=== PATIENT | female | born 1985 | race Caucasian/White ===

== ENCOUNTER → 2016-07-03 | Outpatient (CLI) | payer BC ==
[2016-07-03 10:48] LABS: CH 31.1; CHCM 34.2; Glucose 92 mg/dL (74-99); HCT 37.9 % (34.0-46.0); HDW 2.35; HGB 12.5 gm/dL (11.4-16.0); MCH 30.1 pg (25.0-35.0); MCV 91.3 fL (80.0-100.0); Mean Platelet Volume 7.2; Non-African American GFR(MDRD) >60 (>60 ml/min/1.73 sqM); RBC 4.15 m/uL (3.80-5.40); RDW 13.2 % (11.5-15.5); WBC 6.9 k/uL (3.8-10.6)
[2016-07-03 11:17] LABS: Hepatitis B Surface Ag Index 0.05
[2016-07-03 15:50] LABS: Treponemal Ab Non-Reactive (Non-Reactive)
[2016-07-04 09:39] LABS: HIV-1/HIV-2 Ab Screen NONREAC (NON REAC)
== END | disposition home or self-care (01) ==
LOC: LABWHC1 10:02
PROVIDERS: ATTEND Obstetrics & Gynecology
DX: O26.811 Pregnancy related exhaustion and fatigue, first trimester (principal); Z3A.00 Weeks of gestation of pregnancy not specified
CPT/HCPCS: 36415; 82565; 82947; 85027; 86762; 86777; 86778; 86780; 86850; 86900; 86901; 87340; 87389

== ENCOUNTER → 2016-10-02 | Outpatient (CLI) | payer BC ==
--- NOTE | 2016-10-02 07:55 | US ---
EXAMINATION TYPE: US OB anatomy transabd DATE OF EXAM: 10/02/2016 7:42 AM COMPARISON: NONE HISTORY: Large for Dates 2nd Trimester 036.62X0 Anatomy Scan TECHNIQUE: Transabdominal (TA) EXAM MEASUREMENTS: GESTATIONAL AGE / DATING Physician Established: (19 weeks/4 days) EDC: 02/22/2017 Dates by LMP: Unknown Dates by First Scan: No prior Dates by Current Scan for: (20 weeks/0 days) EDC: 02/19/2017 SURVEY IUP: Single PLACENTA: Anterior PREVIA: No previa CHRIS: 13.1 cm Normal CERVICAL LENGTH (transabdominal: norm > 3.0cm): cm CERVICAL LENGTH (transvaginal: norm> 2.5cm): 3.6 cm BIOMETRY PRESENTATION: Vertex BPD: 4.5 cm 19 weeks / 5 days HC: 17.4 cm 20 weeks / 0 days AC: 14.5 cm 19 weeks / 6 days FL: 3.3 cm 20 weeks / 3 days ESTIMATED WEIGHT IN GRAMS: 327 grams ESTIMATED WEIGHT IN LBS/OZS: 0 lbs. 12 oz. WEIGHT PERCENTAGE BASED ON ESTABLISHED DATE: 72 % HC/AC: 1.20 Normal FL/AC: 23 Normal HEART RATE: 140 bpm RHYTHM: Normal ANATOMY SEEN (within normal limits): * Lateral Vent (< 1 cm) 0.7 cm * Cisterna Magna (< 1.1 cm) 0.6 cm * Nuchal Fold (< 0.6 cm) 0.2 cm * Cerebellum (varies with age) 2.0 cm Choroid Plexus (bilateral) Midline Falx Cavus Septi Pellucidi Four Chamber Heart Outflow tracts: LVOT/RVOT Stomach Situs Nose / Lips Diaphragm Kidneys (bilateral) Bladder Cord Insert Three Vessel Cord Longitudinal Spine Transverse Spine Arms (bilateral) Legs (bilateral) Single, viable IUP/ No abnormality seen at this time IMPRESSION: Single viable intrauterine .
== END | disposition home or self-care (01) ==
LOC: RADUSWWP 07:07
PROVIDERS: ATTEND Obstetrics & Gynecology
DX: O36.62X0 Maternal care for excessive fetal growth, second trimester, not applicable or unspecified (principal); Z3A.20 20 weeks gestation of pregnancy
CPT/HCPCS: 76811

== ENCOUNTER → 2016-11-25 | Outpatient (CLI) | payer BC ==
[2016-11-25 11:03] LABS: CH 32.1; CHCM 34.5; HDW 2.83; HGB 11.8 gm/dL (11.4-16.0); MCH 32.4 pg (25.0-35.0); MCHC 34.6 g/dL (31.0-37.0); MCV 93.6 fL (80.0-100.0); Mean Platelet Volume 6.8; RBC 3.63 m/uL (3.80-5.40); RDW 13.4 % (11.5-15.5); WBC 7.7 k/uL (3.8-10.6)
== END | disposition home or self-care (01) ==
LOC: LABWHC1 09:41
PROVIDERS: ATTEND Obstetrics & Gynecology
DX: Z34.82 Encounter for supervision of other normal pregnancy, second trimester (principal); Z3A.00 Weeks of gestation of pregnancy not specified
CPT/HCPCS: 36415; 82950; 85027

== ENCOUNTER → 2016-11-28 | Outpatient (CLI) | payer BC ==
[2016-11-28 11:33] LABS: Glucose 3 Hour, Gest 74 mg/dL
== END ==
LOC: LABWHC1 07:17
PROVIDERS: ATTEND Obstetrics & Gynecology
DX: O99.810 Abnormal glucose complicating pregnancy (principal); Z3A.00 Weeks of gestation of pregnancy not specified
CPT/HCPCS: 36415; 82951; 82952

== ENCOUNTER 2017-02-16 10:14 | Inpatient (IN) | payer BC ==
--- NOTE | 2017-02-13 06:49 | P.HPOB ---
History of Present Illness H&P Date: 02/13/17 Chief Complaint: Repeat section. This patient is a pleasant 31-year-old 4 para 2 female estimated date of confinement 02/22/2017 estimated gestational age 39-0/7 weeks gestation who is admitted to labor and delivery for elective repeat section. Patient 's care has been uncomplicated. She has had 2 previous sections desires repeat. Review of Systems Constitutional: Denies chills, Denies fever Cardiovascular: Denies chest pain, Denies shortness of breath Respiratory: Denies cough Gastrointestinal: Reports heartburn Genitourinary: Reports Menstruation: Reports amenorrhea Musculoskeletal: Denies myalgias Past Medical History Past Medical History: No Reported History History of Any Multi-Drug Resistant Organisms: None Reported Past Surgical History: Section Past Anesthesia/Blood Transfusion Reactions: No Reported Reaction Past Psychological History: No Psychological Hx Reported Smoking Status: Never smoker Past Alcohol Use History: None Reported Past Drug Use History: None Reported Medications and Allergies Home Medications Medication Instructions Recorded Confirmed Type Pnv,Calcium 72/Iron/Folic Acid 1 tab PO DAILY 02/13/17 02/13/17 History [ Plus Tablet] Allergies Allergy/AdvReac Type Severity Reaction Status Date / Time No Known Allergies Allergy Verified 02/13/17 06:47 Exam - OBG Physical Exam Abdomen: bowel sounds normal, no diffuse tenderness, no bruit present, no guarding noted, no hepatomegaly, no splenomegaly, no mass Vulva: both: normal Vagina: normal moisture, no discharge Cervix: no lesion (Cervix in the office was closed.), no discharge Uterus: enlarged (Fundal height is 39 cm) Results blood work shows she is O positive, rubella nonimmune, hepatitis B negative, RPR is nonreactive, ultrasounds have been normal, group B strep was negative, Glucola was abnormal with a normal three-hour gtt. Assessment and Plan (1) Third trimester Narrative/Plan: This is a pleasant 31-year-old 4 para 2 female 39-0/7 weeks gestation who is admitted to labor and delivery for elective repeat section. Plan is repeat low transverse section. Patient and I have discussed the surgery and risks including risks of infection, bleeding, possible injury to bowel, bladder, vessels, and/or other organs. She also understands risk of DVT and pulmonary embolism. All the patient's questions have been answered and a written consent is obtained. Status: Acute (2) Previous delivery affecting Status: Acute
[2017-02-13 13:14] VITALS: BMI 30.2
[2017-02-16] MEDS ORDERED: CITRIC ACID-SODIUM CITRATE 15 ML CUP PO ONE (10:23)
[2017-02-16] MEDS ORDERED: LACTATED RINGERS 1,000 ML IV SCH (10:23)
[2017-02-16] MEDS ORDERED: LACTATED RINGERS 1,000 ML IV ONE (10:23)
[2017-02-16 10:55] LABS: Basophils % (A) 0 %; CH 32.1; CHCM 35.9; Eosinophils # (A) 0.1 k/uL (0-0.7); Eosinophils % (A) 1 %; HCT 35.6 % (34.0-46.0); HDW 3.17; HGB 12.4 gm/dL (11.4-16.0); Luc # (Auto) 0.15; Luc % (Auto) 2; Lymphocytes # (A) 1.4 k/uL (1.0-4.8); Lymphocytes % (A) 16 %; MCH 31.3 pg (25.0-35.0); MCHC 34.8 g/dL (31.0-37.0); Mean Platelet Volume 7.6; Monocytes # (A) 0.5 k/uL (0-1.0); Monocytes % (A) 6 %; Neutrophils # (A) 6.1 k/uL (1.3-7.7); Neutrophils % (A) 74 %; RBC 3.96 m/uL (3.80-5.40); RDW 13.5 % (11.5-15.5); WBC 8.2 k/uL (3.8-10.6); WBC (Perox) 8.14
[2017-02-16] MEDS ORDERED: ceFAZolin 2 GM in SODIUM CHLORIDE 0.9% 100 ML IVPB ONE (11:45)
[2017-02-16] MEDS ORDERED: OXYTOCIN 10 UNIT/ML 1 ML VIAL ONE (12:30)
[2017-02-16] MEDS ORDERED: NALBUPHINE 10 MG/ML AMPUL ONE (12:30)
[2017-02-16] MEDS ORDERED: ePHEDrine SULFATE/0.9% NACL/PF 50 MG/5 ML SYRINGE IV ONE (12:30)
[2017-02-16] MEDS ORDERED: MORPHINE SULFATE (PF) 0.3 MG/0.3 ML SYR ONE (12:30)
[2017-02-16] MEDS ORDERED: ONDANSETRON 4 MG/2 ML VIAL ONE (12:30)
[2017-02-16] MEDS ORDERED: ACETAMINOPHEN TAB 325 MG TAB PO PRN (13:10)
[2017-02-16] MEDS ORDERED: diphenhydrAMINE 50 MG/ML 1 ML VIAL IVP PRN (13:10)
[2017-02-16] MEDS ORDERED: KETOROLAC 30 MG/ML 1 ML VIAL IVP PRN (13:10)
[2017-02-16] MEDS ORDERED: SIMETHICONE 80 MG CHEWABLE PO PRN (13:10)
[2017-02-16] MEDS ORDERED: diphenhydrAMINE 25 MG CAP PO PRN (13:10)
[2017-02-16] MEDS ORDERED: ONDANSETRON 4 MG/2 ML VIAL IVP PRN (13:10)
[2017-02-16] MEDS ORDERED: MEASLES-MUMPS-RUBELLA VACC/PF 12,500 UNIT/0.5 ML VIAL SQ ONE (13:10)
[2017-02-16] MEDS ORDERED: METOCLOPRAMIDE 5 MG/ML 2 ML VIAL IVP PRN (13:10)
[2017-02-16] MEDS ORDERED: NALOXONE 0.4 MG/ML 1 ML VIAL IV PRN (13:10)
[2017-02-16] MEDS ORDERED: ZOLPIDEM 5 MG TAB PO PRN (13:10)
[2017-02-16] MEDS ORDERED: Acetaminophen-Codeine 300-30mg TAB PO PRN (13:10)
[2017-02-16] MEDS ORDERED: OXYTOCIN 20 UNITS/1000 ML NS 1,000 ML IV SCH (13:15)
[2017-02-16] MEDS ORDERED: DIPH,PERTUS(ACELL)TETVAC-LF 0.5 ML VIAL IM ONE (15:55)
[2017-02-16 17:37] LABS: Glucose,Whole Blood 100 mg/dL (75-99)
--- NOTE | 2017-02-16 17:41 | P.OP ---
Date of Procedure: 02/16/17 Preoperative Diagnosis: #1: 39 and one sevenths week intrauterine . #2: Previous section desires repeat. Postoperative Diagnosis: Same Procedure(s) Performed: Repeat low transverse section Implants: Anesthesia: spinal Surgeon: Major Thomas Operations Director #1: Heath Rea Estimated Blood Loss (ml): 800 Pathology: other (Placenta) Condition: stable Disposition: floor Indications for Procedure: Please see dictated H&P for intimate details of this patient's admission. In brief summary this is a pleasant 31-year-old 4 para 2 female 39 and one sevenths weeks gestation who is admitted to labor and delivery for elective repeat section. Patient does understand the surgery and its risks including risks of infection, bleeding, possible injury to bowel, bladder, vessels, and/or other organs. Patient understands the risk of DVT and pulmonary embolism. All the patient's questions are answered and a written consent is obtained. Operative Findings: This was a vigorous viable male infant Apgars are 9 and 9 delivery time is 1245 hours. Description of Procedure: This patient has a Angelo catheter placed to straight drain. She is subsequently taken to the operating room where she sat up and spinal anesthetic is administered without incident. With an adequate level of anesthesia she has abdominal prep and drape. Scalpels and taken the previous Pfannenstiel incision is incised. A second scalpel is taken down to the fascia and the fascia scored with a knife. Fascial incision extended bilaterally using the Riley scissors. Fascia is dissected sharply off the rectus muscles. Rectus muscles are and the peritoneum was identified and entered sharply. Peritoneal incision extended superior and inferior without difficulty. Bladder blade is then placed. Bladder peritoneum was taken sharply off the lower uterine segment. Scalpels and taken a low transverse uterine incision is then made. Using a hemostat I gently enter the uterine cavity and there is loss of clear fluid. This incision is then extended bluntly. The 's head is then guided through the incision with fundal pressure delivered. Mouth and nares are bulb suctioned. There is a nuchal cord 1 which is reduced. We then have delivery anterior and posterior shoulder and rest this 's body. This is a vigorous viable male Apgars are 9 and 9 delivery time is 1245 hrs. has spontaneous respirations and good cry and grossly appears normal. After delivery of the the umbilical cord is doubly clamped and cut and appears to be trivascular. Placenta is then spontaneously delivered intact. Uterus is then externalized and uterine incision demarcated with Marino clamps. Uterine incision is then closed using 0 Vicryl running locked fashion 2 layers. Excellent hemostasis is noted. Excess fluid is removed from the abdomen and pelvis. Uterus tubes and ovaries appear normal for term gestation. Uterus placed back into the abdomen. Parietal peritoneum was then closed using 0 Vicryl running fashion. Rectus muscles reapproximated in 0 Vicryl interrupted fashion. Fascia is then closed using 0 PDS in running fashion. Fascial incision is intact and hemostatic. Subcutaneous tissues and reapproximated using a 3-0 Vicryl. Skin is and closed using rio. All counts are correct 3. No complications. and mother are taken to the birthing suite in satisfactory condition.
[2017-02-16 18:14] VITALS: RESP 16
[2017-02-17] MEDS: SENNOSIDES-DOCUSATE SODIUM 1 EACH TAB PO SCH ×3 (03:30→20:46)
[2017-02-17] MEDS: LACTATED RINGERS 1,000 ML IV SCH (03:30)
--- NOTE | 2017-02-17 05:31 | P.PNOBGPC ---
Subjective - Subjective Patient reports: Reports appetite normal, Reports voiding normally, Reports pain well controlled, Reports ambulating normally : doing well Objective - Vital Signs Latest vital signs: Vital Signs Temp Pulse Resp BP BP Pulse Ox 02/17/17 04:00 98.4 F 74 16 96/63 02/17/17 00:00 98.1 F 79 16 107/65 02/16/17 20:00 98.0 F 84 16 100/57 02/16/17 17:30 98.2 F 74 16 121/64 100 02/16/17 16:00 98.4 F 72 18 111/59 02/16/17 15:17 98.7 F 77 16 110/58 02/16/17 14:47 97.9 F 71 16 115/68 98 02/16/17 14:17 98.6 F 65 16 106/63 02/16/17 14:02 98.7 F 69 16 102/62 02/16/17 13:47 97.8 F 74 16 106/64 97 02/16/17 13:32 97.2 F L 71 18 109/60 97 02/16/17 13:17 96.9 F L 84 18 116/57 02/16/17 10:40 96.7 F L 96 18 120/80 Intake and Output 02/16/17 02/16/17 02/17/17 14:59 22:59 06:59 Intake Total 1100 200 Output Total 1000 1100 1250 Balance 100 -900 -1250 Intake: IV 1100 Oral 200 Output: Urine 200 1100 1250 Uretheral (Angelo) 550 Estimated Blood Loss 800 Other: # Voids 1 Weight 92.986 kg Patient Weight 02/17/17 06:59 Weight 92.986 kg - Exam Lungs: bilateral: normal Chest: Normal S1, Normal S2 Extremities: Present: normal Abdomen: Present: normal appearance, soft. Absent: distention, tenderness Incision: Present: normal, dry, intact Uterus: Present: normal, firm - Labs Labs: Abnormal Lab Results - Last 24 Hours (Table) 02/16/17 Range/Units 17:34 POC Glucose (mg/dL) 100 H (75-99) mg/dL Assessment and Plan (1) Third trimester Narrative/Plan: Post operative day #1. Patient is resting without complaints. Vital signs are stable and she is afebrile. Uterus is firm nontender and her incision is intact and dry. CBC is pending at time of this dictation. My impression is that this is a normal postoperative course. Plan is to check a CBC, advanced to a regular diet, encourage ambulation, allow the patient to shower. Most likely discharge home tomorrow the following day. Current Visit: Yes Status: Acute Code(s): Z34.93 - ENCNTR FOR SUPRVSN OF NORMAL PREG, UNSP, THIRD TRIMESTER SNOMED Code(s): 06910434 (2) Previous delivery affecting Current Visit: Yes Status: Acute Code(s): O34.219 - MATERNAL CARE FOR UNSP TYPE SCAR FROM PREVIOUS DEL SNOMED Code(s): 042094594
[2017-02-17 08:00] LABS: Basophils % (A) 0 %; CH 31.2; CHCM 34.7; Eosinophils # (A) 0.1 k/uL (0-0.7); Eosinophils % (A) 1 %; HCT 36.3 % (34.0-46.0); HDW 3.13; HGB 12.4 gm/dL (11.4-16.0); Luc # (Auto) 0.17; Luc % (Auto) 1; Lymphocytes # (A) 1.2 k/uL (1.0-4.8); Lymphocytes % (A) 11 %; MCH 30.9 pg (25.0-35.0); MCHC 34.2 g/dL (31.0-37.0); MCV 90.3 fL (80.0-100.0); Mean Platelet Volume 7.3; Monocytes # (A) 0.7 k/uL (0-1.0); Monocytes % (A) 6 %; Neutrophils # (A) 9.4 k/uL (1.3-7.7); Neutrophils % (A) 81 %; RBC 4.02 m/uL (3.80-5.40); WBC 11.6 k/uL (3.8-10.6); WBC (Perox) 11.97
--- NOTE | 2017-02-17 10:37 | P.PN ---
Progress Note - Text Postoperative day 1 status post section under spinal anesthesia, and intrathecal morphine given for postoperative analgesia, patient doing well, there is no anesthesia related complications, further management as per her primary team
[2017-02-17] MEDS: IBUPROFEN 600 MG TAB PO PRN (22:24)
[2017-02-18] MEDS: Acetaminophen-Codeine 300-30mg TAB PO PRN ×2 (00:37→07:41)
[2017-02-18 01:49] VITALS: BP 106/70; PULSE 71; TEMP 98.2
[2017-02-18] MEDS: IBUPROFEN 600 MG TAB PO PRN (02:54)
[2017-02-18] MEDS: SENNOSIDES-DOCUSATE SODIUM 1 EACH TAB PO SCH (07:41)
--- NOTE | 2017-02-18 08:27 | P.DS ---
Providers Date of admission: 02/16/17 10:14 Expected date of discharge: 02/18/17 Attending physician: Major Thomas Primary care physician: Stated None Hospital Course: As is a 31-year-old female 4 para 2 at 39 and one sevenths weeks who presented for scheduled repeat section. She underwent a repeat low transverse section on 02/16/2017 and delivered a viable male with scores of 9 at 1 minute and 9 at 5 minutes and weight of 8 lbs. 2 oz. Her postoperative course has been uncomplicated. Lochia is decreasing. She is passing flatus but no bowel movement yet. She is urinating without difficulty. She is bottle feeding. Vital signs are stable. Abdomen is soft with fundus firm and nontender. Bowel sounds are present 4. Incision is clean dry and intact with Steri-Strips in place. Extremities show negative Homans. Impression is status post repeat low transverse section on . Procedures: Repeat low transverse section on 02/16/2017 Patient Condition at Discharge: Stable Plan - Discharge Summary New Discharge Prescriptions: New Acetaminophen-Codeine 300-30mg [Tylenol w/codeine #3] 1 - 2 each PO Q4HR PRN #30 tab PRN Reason: Mild Pain Ibuprofen [Motrin] 600 mg PO Q6HR PRN #40 tab PRN Reason: Mild Pain Or Fever >= 100.5 Discharge Medication List Acetaminophen-Codeine 300-30mg [Tylenol w/codeine #3] 1 - 2 each PO Q4HR PRN # 30 tab 02/17/17 [Rx] Ibuprofen [Motrin] 600 mg PO Q6HR PRN #40 tab 02/17/17 [Rx] Follow up Appointment(s)/Referral(s): Major Thomas MD [STAFF PHYSICIAN] - 1 Week (Please see me in 6 weeks for a check as well.) Patient Instructions/Handouts: (DC) Activity/Diet/Wound Care/Special Instructions: No heavy lifting or strenuous activity for 6 weeks. No intercourse for 6 weeks. Please call if any fever, chills, excessive vaginal bleeding, and/or abdominal pain. Discharge Disposition: HOME SELF-CARE
== END 2017-02-18 08:28 | disposition home or self-care (01) | DRG 766 ==
LOC: 4FBP 10:14
PROVIDERS: ADMIT Obstetrics & Gynecology; ATTEND Obstetrics & Gynecology
PROC: 3E0234Z Introduction of Serum, Toxoid and Vaccine into Muscle, Percutaneous Approach (ICD-10-PCS; 2017-02-16)
PROC: 3E0134Z Introduction of Serum, Toxoid and Vaccine into Subcutaneous Tissue, Percutaneous Approach (ICD-10-PCS; 2017-02-16)
PROC: 10D00Z1 Extraction of Products of Conception, Low, Open Approach (ICD-10-PCS; principal; 2017-02-16 12:00)
DX: O34.211 Maternal care for low transverse scar from previous cesarean delivery (principal); Z23 Encounter for immunization; Z37.0 Single live birth; Z3A.39 39 weeks gestation of pregnancy
CPT/HCPCS: 85025; 86850; 86900; 86901; 88307; 90707; 90715

== ENCOUNTER → 2019-12-19 | Outpatient (CLI) | payer BC | END | disposition home or self-care (01) | LOC: LABWHC1 10:11 | PROVIDERS: ATTEND Obstetrics & Gynecology | DX: O03.9 Complete or unspecified spontaneous abortion without complication (principal) | CPT/HCPCS: 36415; 84702 ==

== ENCOUNTER 2021-03-13 05:53 | Inpatient (IN) | payer BC, OTHER ==
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
[2021-03-12 13:52] VITALS: BMI 32.0
[2021-03-13] MEDS ORDERED: LACTATED RINGERS 1,000 ML IV ONE (06:05)
[2021-03-13] MEDS ORDERED: CITRIC ACID-SODIUM CITRATE 15 ML CUP PO ONE (06:05)
[2021-03-13 06:50] LABS: Basophils % (A) 0 %; Eosinophils # (A) 0.1 k/uL (0-0.7); Eosinophils % (A) 2 %; HCT 36.3 % (34.0-46.0); Lymphocytes # (A) 1.3 k/uL (1.0-4.8); Lymphocytes % (A) 15 %; MCH 30.6 pg (25.0-35.0); MCHC 33.1 g/dL (31.0-37.0); MCV 92.4 fL (80.0-100.0); Mean Platelet Volume 8.4; Monocytes # (A) 0.6 k/uL (0-1.0); Monocytes % (A) 6 %; Neutrophils # (A) 6.4 k/uL (1.3-7.7); Neutrophils % (A) 75 %; Platelet Count 245 k/uL (150-450); RBC 3.93 m/uL (3.80-5.40); RDW 13.2 % (11.5-15.5); WBC 8.6 k/uL (3.8-10.6)
[2021-03-13] MEDS ORDERED: MORPHINE SULFATE (PF) 0.3 MG/0.3 ML SYR ONE (07:45)
[2021-03-13] MEDS ORDERED: OXYTOCIN 30 UNITS/500 ML NS BAG IV ONE (07:45)
[2021-03-13] MEDS ORDERED: KETOROLAC 15 MG/ML 1 ML VIAL ONE (07:45)
[2021-03-13] MEDS ORDERED: NALBUPHINE 10 MG/ML (1 ML AMP) ONE (07:45)
[2021-03-13] MEDS ORDERED: ePHEDrine SULFATE/0.9% NACL/PF 50 MG/5 ML SYRINGE IV ONE (07:45)
[2021-03-13] MEDS ORDERED: ONDANSETRON 4 MG/2 ML VIAL ONE (07:45)
[2021-03-13] MEDS ORDERED: LANOLIN CREAM 5 GM TUBE TOPICAL PRN (08:42)
[2021-03-13] MEDS ORDERED: ZOLPIDEM 5 MG TAB PO PRN (08:42)
[2021-03-13] MEDS ORDERED: diphenhydrAMINE 25 MG CAP PO PRN (08:42)
[2021-03-13] MEDS ORDERED: SIMETHICONE 80 MG CHEWABLE PO PRN (08:42)
[2021-03-13] MEDS ORDERED: ONDANSETRON 4 MG/2 ML VIAL IVP PRN (08:42)
[2021-03-13] MEDS ORDERED: OXYTOCIN 30 UNITS/500 ML NS 30 UNIT in SALINE 1 500ML.BAG IV SCH (08:42)
[2021-03-13] MEDS ORDERED: diphenhydrAMINE 50 MG/ML 1 ML VIAL IVP PRN (08:42)
[2021-03-13] MEDS ORDERED: NALOXONE 0.4 MG/ML 1 ML VIAL IV PRN (08:42)
[2021-03-13] MEDS ORDERED: METOCLOPRAMIDE 5 MG/ML 2 ML VIAL IVP PRN (08:42)
--- NOTE | 2021-03-13 08:42 | P.OP ---
Date of Procedure: 03/13/21 Preoperative Diagnosis: #1: 39-3/7 week intrauterine . #2: Previous section desires repeat. #3: Multi parity desires permanent sterilization. #4: Elderly multiparous. Postoperative Diagnosis: Same Procedure(s) Performed: Repeat low transverse section and bilateral partial salpingectomy. Anesthesia: spinal Surgeon: Major Thomas Pinked Edge Sewing Machine Operator #1: Tonie Andrade Estimated Blood Loss (ml): 600 Pathology: other (bilateral fallopian tube segments) Condition: stable Disposition: observation Indications for Procedure: Please see dictated H&P for intimate details of this patient's admission. Brief summary this is a pleasant 35-year-old 6 para 3 female 39-3/7 weeks gestation who is admitted to labor and delivery for elective repeat section and also requesting permanent sterilization. Patient does understand the surgery and risks and risks of infection, bleeding, possible injury to bowel, bladder, vessels, and/or other organs. She also understands that a tubal ligation is considered permanent however there is a failure rate of less than 5 per thousand procedures done. All the patient's questions are answered and a written consent is obtained. Operative Findings: This is a vigorous viable female infant Apgars 9 and 9 delivery time was 0801 hrs. had spontaneous respiration and good cry and grossly appears normal. Uterus tubes and ovaries appear normal for term gestation. Description of Procedure: This patient has a Angelo catheter placed to straight drain. She is subsequently taken to the operating room where she sat up and spinal anesthetic is administered without incident. With an adequate level of anesthesia she has abdominal prep and drape. Scalpels taken previous Pfannenstiel incision is incised. A second scalpel is taken down the fascia and the fascia scored with a knife. Fascial incision extended bilaterally using the Riley scissors. Fascia is then dissected off the rectus muscles sharply. Rectus muscles are the peritoneum identified and entered sharply. Peritoneal incision extended superior and inferior without difficulty. Bladder blade is then placed. Bladder peritoneum was then taken sharply off the lower uterine segment. Scalpels and taken a low transverse uterine incision is then made. A hemostat is then used to gently into the uterine cavity and there is loss of clear fluid. This incision is extended bluntly. Infant is then guided through the incision with fundal pressure. Mouth and nares are bulb suctioned. There is no evidence of nuchal cord. With continued fundal pressure deliver the rest this infant's body. Is a vigorous viable female infant Apgars 9 and 9 delivery time is 0801 hrs. After delivery of the the umbilical cord is doubly clamped and cut appears to be trivascular. The infant is then handed off to the nurses in attendance. The placenta is then manually extracted intact. Uterus is externalized and the uterine incision is then demarcated with Marino clamps and closed using 0 Vicryl running locked fashion 2 layers. Excellent hemostasis is noted. Bladder peritoneum was then reapproximated using a 3-0 Vicryl running fashion. Then turned my attention to the left fallopian tube and approximately 4 cm from the cornual insertion a small window made to the mesial salpinx with Bovie cautery. Using a 2-0 silk I doubly ligate a segment of the tube. Segment is excised and handed off to pathology. Cauterization is then done of the tubal ends. There is a small areas bleeding on the antimesenteric portion and this is sutured with 0 Vicryl. Excellent hemostasis is noted. Term attention a right side and using a similar technique excision of the right segment of the right fallopian tube is done. This completed excess fluid is removed from the abdomen and pelvis. Final inspection of the uterine incision and the tubal excision areas are hemostatic. Uterus placed back into the abdomen. Parietal peritoneum was then identified and demarcated with hemostats. I did do a final inspection of the uterine incision and the tubal segments and again all appears hemostatic. Vital peritoneum was then closed in 0 Vicryl running fashion. Rectus muscles reapproximated Vicryl ruptured fashion. Fascial incision is then closed using 0 PDS. Fascial incision is intact and hemostatic. Subcutaneous tissues and closed using a 3-0 Vicryl. Skin is and closed using rio. All counts are correct 3. There are no complications. and mother are taken to the birthing suite in satisfactory condition.
[2021-03-13] MEDS: KETOROLAC 15 MG/ML 1 ML VIAL IVP SCH (15:52)
[2021-03-13] MEDS: PRENATAL VIT-IRON-FOLIC ACID 1 EACH CAP PO SCH (17:07)
[2021-03-13] MEDS: LACTATED RINGERS 1,000 ML IV SCH (17:08)
[2021-03-14] MEDS: LACTATED RINGERS 1,000 ML IV SCH ×3 (01:53→19:23)
[2021-03-14] MEDS: KETOROLAC 15 MG/ML 1 ML VIAL IVP SCH ×3 (02:07→10:48)
--- NOTE | 2021-03-14 06:18 | P.PNOBGPC ---
Subjective - Subjective Patient reports: Reports appetite normal, Reports voiding normally, Reports pain well controlled, Reports ambulating normally : doing well Objective - Vital Signs Latest vital signs: Vital Signs Temp Pulse Resp BP Pulse Ox 03/14/21 04:00 98.0 F 66 17 108/65 100 03/14/21 00:00 98.3 F 72 17 113/71 100 03/13/21 20:00 98.1 F 68 17 109/74 99 03/13/21 16:00 97.4 F L 65 16 120/77 96 03/13/21 12:00 97.6 F 70 16 118/74 96 03/13/21 10:39 68 16 108/59 97 03/13/21 10:13 57 L 16 95/55 97 03/13/21 09:43 66 16 104/52 98 03/13/21 09:28 64 16 94/53 97 03/13/21 09:13 74 16 91/54 97 03/13/21 08:58 72 16 94/56 98 03/13/21 08:43 97 F L 88 16 109/56 98 03/13/21 08:42 98 Intake and Output 03/13/21 03/13/21 03/14/21 14:59 22:59 06:59 Intake Total 2400 Output Total 1600 750 Balance 800 -750 Intake: IV 2400 Output: Urine 1600 750 Uretheral (Angelo) 300 Other: # Voids 1 - Exam Lungs: bilateral: normal Chest: Normal S1, Normal S2 Extremities: Present: normal Abdomen: Present: normal appearance, soft. Absent: distention, tenderness Incision: Present: normal, dry, intact Uterus: Present: normal, firm Assessment and Plan Assessment: Postoperative day #1. Patient is resting without complaints. Vital signs are stable and she is afebrile. Uterus is firm nontender and her incision is intact and dry. CBC is pending. My impression this is a normal postoperative course. Plan is to continue routine postoperative care, allow the patient to shower, and check a CBC. (1) 39 weeks gestation of Current Visit: No Status: Acute Code(s): Z3A.39 - 39 WEEKS GESTATION OF SNOMED Code(s): 10836236 (2) Elderly multigravida Current Visit: No Status: Acute Code(s): O09.529 - SUPERVISION OF ELDERLY MULTIGRAVIDA, UNSPECIFIED TRIMESTER SNOMED Code(s): 906608922 (3) Family planning Current Visit: No Status: Acute Code(s): Z30.09 - ENCOUNTER FOR OTH GENERAL CNSL AND ADVICE ON CONTRACEPTION SNOMED Code(s): 631460596 (4) Previous delivery affecting Current Visit: No Status: Acute Code(s): O34.219 - MATERNAL CARE FOR UNSP TYPE SCAR FROM PREVIOUS DEL SNOMED Code(s): 759101910
[2021-03-14] MEDS: SENNOSIDES-DOCUSATE SODIUM 1 EACH TAB PO PRN ×2 (08:22→21:15)
[2021-03-14] MEDS: PRENATAL VIT-IRON-FOLIC ACID 1 EACH CAP PO SCH (08:22)
--- NOTE | 2021-03-14 08:32 | P.PN ---
Progress Note - Text Date: 03/14/2021 Time: 07:07 The patient is status post section Vital signs stable VAS: 0-10 Patient has no complaints of pain. The patient incurred some minimal itching yesterday, this itching is now subsiding. Pain meds to be managed by service.
[2021-03-14 09:30] LABS: Basophils % (A) 0 %; Eosinophils # (A) 0.1 k/uL (0-0.7); Eosinophils % (A) 1 %; HCT 31.7 % (34.0-46.0); HGB 10.8 gm/dL (11.4-16.0); Lymphocytes # (A) 1.1 k/uL (1.0-4.8); Lymphocytes % (A) 13 %; MCH 31.4 pg (25.0-35.0); MCV 92.4 fL (80.0-100.0); Mean Platelet Volume 8.3; Monocytes # (A) 0.4 k/uL (0-1.0); Monocytes % (A) 5 %; Neutrophils # (A) 6.4 k/uL (1.3-7.7); Neutrophils % (A) 79 %; Platelet Count 212 k/uL (150-450); RBC 3.43 m/uL (3.80-5.40); RDW 13.2 % (11.5-15.5); WBC 8.1 k/uL (3.8-10.6)
[2021-03-14] MEDS: IBUPROFEN 600 MG TAB PO PRN (17:48)
[2021-03-14] MEDS: ACETAMINOPHEN TAB 500 MG TAB PO PRN (21:15)
[2021-03-15] MEDS: IBUPROFEN 600 MG TAB PO PRN ×2 (00:17→06:09)
[2021-03-15] MEDS: ACETAMINOPHEN TAB 500 MG TAB PO PRN ×2 (03:14→08:25)
--- NOTE | 2021-03-15 06:04 | P.PNOBGPC ---
Subjective - Subjective Patient reports: Reports appetite normal, Reports voiding normally, Reports pain well controlled, Reports ambulating normally : doing well Objective - Vital Signs Latest vital signs: Vital Signs Temp Pulse Resp BP Pulse Ox 03/15/21 00:00 97.8 F 65 17 118/76 99 03/14/21 16:00 98.7 F 75 16 108/73 97 03/14/21 08:00 97.9 F 86 16 116/74 98 Intake and Output 03/14/21 03/14/21 03/15/21 14:59 22:59 06:59 Intake Total 600 600 Balance 600 600 Intake: Oral 600 600 Other: # Voids 1 3 2 - Exam Lungs: bilateral: normal Chest: Normal S1, Normal S2 Extremities: Present: normal Abdomen: Present: normal appearance, soft. Absent: distention, tenderness Incision: Present: normal, dry, intact Uterus: Present: normal, firm - Labs Labs: Abnormal Lab Results - Last 24 Hours (Table) 03/14/21 Range/Units 08:48 RBC 3.43 L (3.80-5.40) m/uL Hgb 10.8 L (11.4-16.0) gm/dL Hct 31.7 L (34.0-46.0) % Assessment and Plan Assessment: Post operative day #2. Patient is resting without complaints and wishes to go home. Vital signs are stable she's afebrile. Uterus is firm nontender and her incision is intact and dry. CBC yesterday was normal. Patient is ambulating, urinating, and tolerating regular diet. My impression that this is a normal post operative course. Plan is to continue routine postoperative care and discharge home later today. (1) 39 weeks gestation of Current Visit: No Status: Acute Code(s): Z3A.39 - 39 WEEKS GESTATION OF SNOMED Code(s): 28985079 (2) Elderly multigravida Current Visit: No Status: Acute Code(s): O09.529 - SUPERVISION OF ELDERLY MULTIGRAVIDA, UNSPECIFIED TRIMESTER SNOMED Code(s): 966007147 (3) Family planning Current Visit: No Status: Acute Code(s): Z30.09 - ENCOUNTER FOR OTH GENERAL CNSL AND ADVICE ON CONTRACEPTION SNOMED Code(s): 173331506 (4) Previous delivery affecting Current Visit: No Status: Acute Code(s): O34.219 - MATERNAL CARE FOR UNSP TYPE SCAR FROM PREVIOUS DEL SNOMED Code(s): 850757997
--- NOTE | 2021-03-15 06:11 | P.DS ---
Providers Date of admission: 03/13/21 05:53 Expected date of discharge: 03/15/21 Attending physician: Major Thomas Primary care physician: Stated None - Discharge Diagnosis(es) (1) 39 weeks gestation of Current Visit: No Status: Acute (2) Elderly multigravida Current Visit: No Status: Acute (3) Family planning Current Visit: No Status: Acute (4) Previous delivery affecting Current Visit: No Status: Acute Hospital Course: Please see dictated H&P for intimate details of this patient's admission. Brief summary this pleasant 35-year-old 6 para 3 female 39-3/7 weeks who is admitted to labor and delivery for elective repeat section and also requesting permanent sterilization. Patient undergoes a repeat low transverse section and bilateral partial salpingectomy. Please see dictated operative note. Postoperative patient does well and on postoperative 20 to be stable for discharge home follow up with me in 1 week. Procedures: Repeat low transverse section and bilateral partial salpingectomy Patient Condition at Discharge: Good Plan - Discharge Summary Discharge Rx Participant: Yes New Discharge Prescriptions: New Ibuprofen [Motrin] 600 mg PO Q6H PRN #30 tab PRN Reason: Pain oxyCODONE HCL [OxyIR] 5 mg PO Q4HR PRN #18 tab PRN Reason: Pain No Action Pnv No.95/Ferrous Fum/Folic AC [ Multivitamin Tablet] 1 each PO DAILY Discharge Medication List Pnv No.95/Ferrous Fum/Folic AC [ Multivitamin Tablet] 1 each PO DAILY 03/12/21 [History] Ibuprofen [Motrin] 600 mg PO Q6H PRN #30 tab 03/15/21 [Rx] oxyCODONE HCL [OxyIR] 5 mg PO Q4HR PRN #18 tab 03/15/21 [Rx] Follow up Appointment(s)/Referral(s): Major Thomas MD [STAFF PHYSICIAN] - 04/22/21 11:15 am (Please see me for a postoperative visit on 03-21-2021 @ 1:30 p.m.) Patient Instructions/Handouts: (DC) Activity/Diet/Wound Care/Special Instructions: No heavy lifting or strenuous activity for 6 weeks. Please call if any fever, chills, excessive vaginal bleeding, and/or abdominal pain. Discharge Disposition: HOME SELF-CARE
[2021-03-15] MEDS: SENNOSIDES-DOCUSATE SODIUM 1 EACH TAB PO PRN (08:26)
[2021-03-15 10:14] VITALS: BP 124/80; PULSE 63; RESP 16; TEMP 97.7
== END 2021-03-15 09:45 | disposition home or self-care (01) | DRG 785 ==
LOC: 4FBP 05:53
PROVIDERS: ADMIT Obstetrics & Gynecology; ATTEND Obstetrics & Gynecology
PROC: 0UB70ZZ Excision of Bilateral Fallopian Tubes, Open Approach (ICD-10-PCS; 2021-03-13)
PROC: 10D00Z1 Extraction of Products of Conception, Low, Open Approach (ICD-10-PCS; principal; 2021-03-13 07:57)
DX: O34.211 Maternal care for low transverse scar from previous cesarean delivery (principal); O99.62 Diseases of the digestive system complicating childbirth; K21.9 Gastro-esophageal reflux disease without esophagitis; Z37.0 Single live birth; Z30.2 Encounter for sterilization; Z3A.39 39 weeks gestation of pregnancy; Z30.09 Encounter for other general counseling and advice on contraception
CPT/HCPCS: 85025; 86850; 86900; 86901; 88302

== ENCOUNTER → 2023-12-15 | Outpatient (CLI) | payer BC ==
--- NOTE | 2023-12-15 09:45 | US ---
EXAMINATION TYPE: US pelvic complete DATE OF EXAM: 12/15/2023 COMPARISON: NONE CLINICAL INDICATION: Female, 37 years old with history of R10.31 right lower quadrant pain; RLQ pain. History of c-sections and tubal ligation TECHNIQUE: Transabdominal (TA). Date of LMP: 12/10/23 EXAM MEASUREMENTS: Uterus: 10.6 x 4.4 x 6.8 cm Endometrial Stripe: 1.0 cm Right Ovary: 3.3 x 2.2 x 2.1 cm Left Ovary: 3.5 x 2.7 x 1.1 cm 1. Uterus: Anteverted 2. Endometrium: fluid noted with a hyperechoic 2.6 x 0.8 x 3.7cm with solid component within 3. Right Ovary: follicles noted 4. Left Ovary: follicles noted 5. Bilateral Adnexa: appears wnl 6. Posterior cul-de-sac: wnl IMPRESSION: Fluid and debris within the endometrium. Unclear if these are blood products. Further lee luation direct visualization. Correlation with beta-hCG is recommended.
--- NOTE | 2023-12-15 10:37 | US ---
EXAMINATION TYPE: US abdomen complete DATE OF EXAM: 12/15/2023 COMPARISON: NONE CLINICAL INDICATION: Female, 37 years old with history of R10.31 RIGHT LOWER QUADRANT PAIN; Right jose ed pain TECHNIQUE: Multiple sonographic images of the abdomen are obtained. FINDINGS: EXAM MEASUREMENTS: Liver Length: 15.2 cm Gallbladder Wall: 0.2 cm CBD: 0.2 cm Spleen: 11.9 cm Right Kidney: 11.6 x 4.4 x 4.5 cm Left Kidney: 11.4 x 4.9 x 5.2 cm MARKETING OPERATIONS ANALYST NOTES: *Limitations due to large amount of overlying bowel gas Pancreas: appears wnl Liver: wnl Gallbladder: no evidence of stones Evidence for sonographic Reyna's sign: no CBD: wnl Spleen: wnl Right Kidney: no evidence of hydronephrosis Left Kidney: no evidence of hydronephrosis Upper IVC: wnl Abd Aorta: wnl The liver is homogenous. The intrahepatic portion of the IVC and proximal abdominal aorta are within normal limits. There is no evidence of cholelithiasis. Common bile duct is unremarkable. The visu alized portions of the pancreas are homogenous. The spleen is unremarkable. Kidneys are symmetric a nd free of hydronephrosis. No renal lesions are seen. IMPRESSION: No evidence for obstructive uropathy or renal calculus.
== END | disposition home or self-care (01) ==
LOC: RADUSWWP 08:20
PROVIDERS: ATTEND Family Medicine
DX: R10.31 Right lower quadrant pain (principal)
CPT/HCPCS: 76700; 76856